=== PATIENT | female | born 1935 | race Caucasian/White ===

== ENCOUNTER 2020-11-05 17:25 | Emergency (ER) | payer MEDICARE, OTHER ==
[2020-11-05] MEDS ORDERED: Aspirin Chewable 81 MG TAB ONE (17:33)
[2020-11-05] MEDS ORDERED: methylPREDNISolone Sod Succ/PF 125 MG/2 ML VIAL ONE (17:52)
[2020-11-05 18:01] LABS: #Basophils 0.1 thou/uL (0.0-0.2); #Monocytes 0.6 thou/uL (0.11-0.59); %Basophils 0.5 % (0.0-1.0); %Lymphocytes 10.2 % (21.0-51.0); %Neutrophils 83.2 % (42.0-75.0); Hemoglobin 13.3 g/dL (12.0-16.0); Mean Corpuscular HGB CONC 32.7 g/dL (32.0-36.0); Mean Corpuscular Hemoglobin 29.7 pg (27.0-31.0); Mean Platelet Volume 7.8 fL (7.4-10.4); Platelet Count 207 thou/uL (130-400); RBC Distribution Width 13.2 % (11.5-14.5); Red Blood Cell (RBC) Count 4.47 mill/uL (4.20-5.40); White Blood Cell (WBC) Count 9.6 thou/uL (4.8-10.8)
[2020-11-05 18:13] LABS: ALT (SGPT) 14 U/L (8-55); AST (SGOT) 14 U/L (5-34); Albumin 4.2 g/dL (3.4-4.8); Alkaline Phosphatase 82 U/L (40-110); Anion Gap 16 mmol/L (10-20); BUN (Urea Nitrogen) 12 mg/dL (9.8-20.1); Bilirubin, Total 0.8 mg/dL (0.2-1.2); Calc. Creatinine Clearance 0 mL/min (70-130); Calcium 9.1 mg/dL (7.8-10.44); Carbon Dioxide 28 mmol/L (23-31); Chloride 100 mmol/L (98-107); Globulin 2.4 g/dL (2.4-3.5); Glucose 117 mg/dL (83-110); Potassium 4.2 mmol/L (3.5-5.1); Protein, Total 6.6 g/dL (5.8-8.1); Sodium 140 mmol/L (136-145)
== END 2020-11-05 18:25 | disposition home or self-care (01) ==
LOC: MADERS 17:25
DX: J44.1 Chronic obstructive pulmonary disease with (acute) exacerbation (principal); I25.10 Atherosclerotic heart disease of native coronary artery without angina pectoris; E11.9 Type 2 diabetes mellitus without complications; I10 Essential (primary) hypertension; Z87.891 Personal history of nicotine dependence
CPT/HCPCS: 71045; 80053; 83880; 84484; 85025; 93005; 96374; J2930; J7620

== ENCOUNTER 2021-08-22 16:58 | Inpatient (IN) | payer MEDICARE, OTHER ==
[2021-08-22 19:04] VITALS: BMI 39.8
[2021-08-22] MEDS ORDERED: FLU VACC QS2021-22(65YR UP)/PF 240 MCG/0.7 ML SYRINGE IM ONE (19:15)
[2021-08-22] MEDS ORDERED: Ibuprofen 200 MG TAB PO PRN (20:02)
[2021-08-22] MEDS ORDERED: HumaLOG 300 UNITS/3 ML VIAL SC PRN (20:09)
[2021-08-22] MEDS ORDERED: Dextrose 50% Abboject 50 ML SYRINGE SLOW IVP PRN (20:09)
[2021-08-22] MEDS ORDERED: Ciprofloxacin 500 MG TAB PO SCH (20:30)
[2021-08-22] MEDS: Gabapentin 100 MG CAP PO SCH (20:47)
[2021-08-22] MEDS: Aspirin 81 mg Enteric Coated Tablet PO SCH (20:48)
[2021-08-23] MEDS: Acetaminophen 500 MG TAB PO SCH ×5 (00:06→23:44)
[2021-08-23] MEDS: traMADol HCl 50 MG TAB PO SCH ×5 (00:07→23:43)
[2021-08-23] MEDS: Levothyroxine Sodium 75 MCG TAB PO SCH (05:42)
[2021-08-23] MEDS: Ciprofloxacin 500 MG TAB PO SCH ×2 (05:47→20:03)
[2021-08-23] MEDS: metFORMIN 500 MG TAB PO SCH (09:03)
[2021-08-23] MEDS: Gabapentin 100 MG CAP PO SCH ×3 (09:03→20:06)
[2021-08-23] MEDS: Aspirin 81 mg Enteric Coated Tablet PO SCH ×2 (09:03→20:02)
[2021-08-23] MEDS: Lisinopril 5 MG TAB PO SCH (09:05)
[2021-08-23] MEDS: Venlafaxine HCl 37.5 MG TAB PO SCH (09:05)
[2021-08-23] MEDS: OLODATEROL HCL INH SCH (11:51)
[2021-08-23] MEDS: TIOTROPIUM BR INH SCH (11:51)
[2021-08-24] MEDS: Levothyroxine Sodium 75 MCG TAB PO SCH (05:36)
[2021-08-24] MEDS: Acetaminophen 500 MG TAB PO SCH ×3 (05:36→17:31)
[2021-08-24] MEDS: traMADol HCl 50 MG TAB PO SCH ×3 (05:37→17:31)
[2021-08-24] MEDS: Ciprofloxacin 500 MG TAB PO SCH ×2 (05:43→20:24)
[2021-08-24] MEDS: Gabapentin 100 MG CAP PO SCH ×3 (09:18→20:23)
[2021-08-24] MEDS: Aspirin 81 mg Enteric Coated Tablet PO SCH ×2 (09:18→20:23)
[2021-08-24] MEDS: metFORMIN 500 MG TAB PO SCH (09:18)
[2021-08-24] MEDS: Venlafaxine HCl 37.5 MG TAB PO SCH (09:19)
[2021-08-24] MEDS: Lisinopril 5 MG TAB PO SCH (09:19)
[2021-08-24] MEDS: OLODATEROL HCL INH SCH (12:05)
[2021-08-24] MEDS: TIOTROPIUM BR INH SCH (12:05)
[2021-08-25] MEDS: Acetaminophen 500 MG TAB PO SCH ×5 (00:07→23:14)
[2021-08-25] MEDS: Betamethasone 0.1% Cream 15 GM TUBE TOP SCH ×3 (00:07→21:19)
[2021-08-25] MEDS: traMADol HCl 50 MG TAB PO SCH ×5 (00:08→23:14)
[2021-08-25] MEDS: Ciprofloxacin 500 MG TAB PO SCH (05:44)
[2021-08-25] MEDS: Levothyroxine Sodium 75 MCG TAB PO SCH (05:44)
[2021-08-25 08:24] LABS: #Lymphocytes 0.8 thou/uL (1.20-3.40); #Monocytes 0.6 thou/uL (0.11-0.59); #Neutrophils 5.3 thou/uL (1.40-6.50); %Basophils 0.6 % (0.0-1.0); %Eosinophils 0.1 % (0.0-10.0); %Lymphocytes 11.7 % (21.0-51.0); %Monocytes 8.4 % (0.0-10.0); %Neutrophils 79.1 % (42.0-75.0); Hemoglobin 11.1 g/dL (12.0-16.0); Mean Corpuscular HGB CONC 31.9 g/dL (32.0-36.0); Mean Corpuscular Hemoglobin 28.9 pg (27.0-31.0); Mean Corpuscular Volume 90.6 fL (78.0-98.0); Platelet Count 235 thou/uL (130-400); RBC Distribution Width 12.9 % (11.5-14.5); Red Blood Cell (RBC) Count 3.83 mill/uL (4.20-5.40); White Blood Cell (WBC) Count 6.7 thou/uL (4.8-10.8)
[2021-08-25 08:40] LABS: Anion Gap 13 mmol/L (10-20); BUN (Urea Nitrogen) 15 mg/dL (9.8-20.1); Calc. Creatinine Clearance 87 mL/min (70-130); Calcium 8.9 mg/dL (7.8-10.44); Carbon Dioxide 28 mmol/L (23-31); Chloride 100 mmol/L (98-107); Glucose 112 mg/dL (83-110); Potassium 4.5 mmol/L (3.5-5.1); Sodium 136 mmol/L (136-145)
[2021-08-25] MEDS: metFORMIN 500 MG TAB PO SCH (08:47)
[2021-08-25] MEDS: Venlafaxine HCl 37.5 MG TAB PO SCH (08:47)
[2021-08-25] MEDS: Lisinopril 5 MG TAB PO SCH (08:47)
[2021-08-25] MEDS: Gabapentin 100 MG CAP PO SCH ×3 (08:48→21:18)
[2021-08-25] MEDS: Aspirin 81 mg Enteric Coated Tablet PO SCH ×2 (08:49→21:19)
[2021-08-25] MEDS: OLODATEROL HCL INH SCH (11:43)
[2021-08-25] MEDS: TIOTROPIUM BR INH SCH (11:43)
[2021-08-25 20:42] LABS: SARS-CoV-2 PCR by NAA Not Detected (NotDetected)
[2021-08-26] MEDS: traMADol HCl 50 MG TAB PO SCH ×3 (06:05→17:45)
[2021-08-26] MEDS: Acetaminophen 500 MG TAB PO SCH ×3 (06:05→17:44)
[2021-08-26] MEDS: Levothyroxine Sodium 75 MCG TAB PO SCH (06:05)
[2021-08-26] MEDS: Ferrous Gluconate 324 MG TAB PO SCH (08:22)
[2021-08-26] MEDS: Lisinopril 5 MG TAB PO SCH (08:22)
[2021-08-26] MEDS: Gabapentin 100 MG CAP PO SCH ×3 (08:23→20:44)
[2021-08-26] MEDS: Venlafaxine HCl 37.5 MG TAB PO SCH (08:23)
[2021-08-26] MEDS: Aspirin 81 mg Enteric Coated Tablet PO SCH ×2 (08:23→20:44)
[2021-08-26] MEDS: Betamethasone 0.1% Cream 15 GM TUBE TOP SCH ×2 (08:24→20:45)
[2021-08-26] MEDS: metFORMIN 500 MG TAB PO SCH (08:24)
[2021-08-26] MEDS: OLODATEROL HCL INH SCH (11:26)
[2021-08-26] MEDS: TIOTROPIUM BR INH SCH (11:26)
[2021-08-27] MEDS: traMADol HCl 50 MG TAB PO SCH ×5 (07:14→23:50)
[2021-08-27] MEDS: Acetaminophen 500 MG TAB PO SCH ×5 (07:14→23:50)
[2021-08-27] MEDS: Levothyroxine Sodium 75 MCG TAB PO SCH (07:17)
[2021-08-27] MEDS: Gabapentin 100 MG CAP PO SCH ×3 (08:12→20:56)
[2021-08-27] MEDS: Aspirin 81 mg Enteric Coated Tablet PO SCH ×2 (08:12→20:56)
[2021-08-27] MEDS: Ferrous Gluconate 324 MG TAB PO SCH (08:12)
[2021-08-27] MEDS: metFORMIN 500 MG TAB PO SCH (08:13)
[2021-08-27] MEDS: Lisinopril 5 MG TAB PO SCH (08:13)
[2021-08-27] MEDS: Betamethasone 0.1% Cream 15 GM TUBE TOP SCH ×2 (08:16→20:57)
[2021-08-27] MEDS: Venlafaxine HCl 37.5 MG TAB PO SCH (08:17)
[2021-08-27] MEDS: TIOTROPIUM BR INH SCH (12:05)
[2021-08-27] MEDS: OLODATEROL HCL INH SCH (12:05)
[2021-08-28] MEDS: Levothyroxine Sodium 75 MCG TAB PO SCH (05:39)
[2021-08-28] MEDS: Acetaminophen 500 MG TAB PO SCH ×4 (05:39→23:54)
[2021-08-28] MEDS: traMADol HCl 50 MG TAB PO SCH ×4 (05:39→23:53)
[2021-08-28] MEDS: Gabapentin 100 MG CAP PO SCH ×3 (08:38→20:44)
[2021-08-28] MEDS: Lisinopril 5 MG TAB PO SCH (08:39)
[2021-08-28] MEDS: Venlafaxine HCl 37.5 MG TAB PO SCH (08:39)
[2021-08-28] MEDS: metFORMIN 500 MG TAB PO SCH (08:39)
[2021-08-28] MEDS: Aspirin 81 mg Enteric Coated Tablet PO SCH ×2 (08:39→20:46)
[2021-08-28] MEDS: Ferrous Gluconate 324 MG TAB PO SCH (08:39)
[2021-08-28] MEDS: Betamethasone 0.1% Cream 15 GM TUBE TOP SCH ×2 (08:39→20:46)
[2021-08-28] MEDS: TIOTROPIUM BR INH SCH (11:49)
[2021-08-28] MEDS: OLODATEROL HCL INH SCH (11:49)
[2021-08-29] MEDS: Acetaminophen 500 MG TAB PO SCH ×3 (05:17→17:45)
[2021-08-29] MEDS: Levothyroxine Sodium 75 MCG TAB PO SCH (05:18)
[2021-08-29] MEDS: traMADol HCl 50 MG TAB PO SCH ×3 (05:18→17:44)
[2021-08-29] MEDS: Gabapentin 100 MG CAP PO SCH ×3 (09:35→21:22)
[2021-08-29] MEDS: metFORMIN 500 MG TAB PO SCH (09:37)
[2021-08-29] MEDS: Venlafaxine HCl 37.5 MG TAB PO SCH (09:37)
[2021-08-29] MEDS: Lisinopril 5 MG TAB PO SCH (09:37)
[2021-08-29] MEDS: Ferrous Gluconate 324 MG TAB PO SCH (09:37)
[2021-08-29] MEDS: Aspirin 81 mg Enteric Coated Tablet PO SCH ×2 (09:38→21:22)
[2021-08-29] MEDS: Betamethasone 0.1% Cream 15 GM TUBE TOP SCH ×2 (09:39→21:22)
[2021-08-29] MEDS: TIOTROPIUM BR INH SCH (11:55)
[2021-08-29] MEDS: OLODATEROL HCL INH SCH (11:55)
[2021-08-30] MEDS: traMADol HCl 50 MG TAB PO SCH ×4 (00:38→17:58)
[2021-08-30] MEDS: Acetaminophen 500 MG TAB PO SCH ×4 (00:38→17:57)
[2021-08-30] MEDS: Levothyroxine Sodium 75 MCG TAB PO SCH (05:16)
[2021-08-30] MEDS: Ferrous Gluconate 324 MG TAB PO SCH (08:12)
[2021-08-30] MEDS: metFORMIN 500 MG TAB PO SCH (08:12)
[2021-08-30] MEDS: Lisinopril 5 MG TAB PO SCH (08:12)
[2021-08-30] MEDS: Gabapentin 100 MG CAP PO SCH ×3 (08:13→22:05)
[2021-08-30] MEDS: Venlafaxine HCl 37.5 MG TAB PO SCH (08:13)
[2021-08-30] MEDS: Betamethasone 0.1% Cream 15 GM TUBE TOP SCH ×2 (08:14→22:05)
[2021-08-30] MEDS: Aspirin 81 mg Enteric Coated Tablet PO SCH ×2 (08:14→22:07)
[2021-08-30] MEDS: TIOTROPIUM BR INH SCH (11:30)
[2021-08-30] MEDS: OLODATEROL HCL INH SCH (11:30)
[2021-08-31] MEDS: traMADol HCl 50 MG TAB PO SCH ×5 (01:12→23:15)
[2021-08-31] MEDS: Acetaminophen 500 MG TAB PO SCH ×5 (01:12→23:14)
[2021-08-31] MEDS: Levothyroxine Sodium 75 MCG TAB PO SCH (05:26)
[2021-08-31] MEDS: Aspirin 81 mg Enteric Coated Tablet PO SCH ×2 (08:42→20:10)
[2021-08-31] MEDS: Ferrous Gluconate 324 MG TAB PO SCH (08:42)
[2021-08-31] MEDS: Venlafaxine HCl 37.5 MG TAB PO SCH (08:42)
[2021-08-31] MEDS: Betamethasone 0.1% Cream 15 GM TUBE TOP SCH ×2 (08:43→20:11)
[2021-08-31] MEDS: Lisinopril 5 MG TAB PO SCH (08:43)
[2021-08-31] MEDS: metFORMIN 500 MG TAB PO SCH (08:43)
[2021-08-31] MEDS: Gabapentin 100 MG CAP PO SCH ×3 (08:43→20:10)
[2021-08-31] MEDS: OLODATEROL HCL INH SCH (11:30)
[2021-08-31] MEDS: TIOTROPIUM BR INH SCH (11:30)
[2021-09-01] MEDS: traMADol HCl 50 MG TAB PO SCH ×3 (05:10→17:35)
[2021-09-01] MEDS: Levothyroxine Sodium 75 MCG TAB PO SCH (05:10)
[2021-09-01] MEDS: Acetaminophen 500 MG TAB PO SCH ×3 (05:11→17:36)
[2021-09-01] MEDS: Ferrous Gluconate 324 MG TAB PO SCH (08:20)
[2021-09-01] MEDS: Aspirin 81 mg Enteric Coated Tablet PO SCH ×2 (08:20→20:53)
[2021-09-01] MEDS: metFORMIN 500 MG TAB PO SCH (08:20)
[2021-09-01] MEDS: Venlafaxine HCl 37.5 MG TAB PO SCH (08:21)
[2021-09-01] MEDS: Gabapentin 100 MG CAP PO SCH ×3 (08:21→20:53)
[2021-09-01] MEDS: Betamethasone 0.1% Cream 15 GM TUBE TOP SCH ×2 (08:21→20:53)
[2021-09-01] MEDS: Lisinopril 5 MG TAB PO SCH (08:22)
[2021-09-01] MEDS: OLODATEROL HCL INH SCH (11:55)
[2021-09-01] MEDS: TIOTROPIUM BR INH SCH (11:55)
[2021-09-01 17:30] LABS: SARS-CoV-2 PCR by NAA Not Detected (NotDetected)
[2021-09-02] MEDS: Acetaminophen 500 MG TAB PO SCH ×4 (02:14→20:17)
[2021-09-02] MEDS: traMADol HCl 50 MG TAB PO SCH ×4 (02:14→20:17)
[2021-09-02] MEDS: Levothyroxine Sodium 75 MCG TAB PO SCH (05:36)
[2021-09-02] MEDS: Ferrous Gluconate 324 MG TAB PO SCH (08:21)
[2021-09-02] MEDS: Venlafaxine XR 37.5 MG CAP PO SCH (08:22)
[2021-09-02] MEDS: metFORMIN 500 MG TAB PO SCH (08:22)
[2021-09-02] MEDS: Gabapentin 100 MG CAP PO SCH ×3 (08:22→21:20)
[2021-09-02] MEDS: Aspirin 81 mg Enteric Coated Tablet PO SCH ×2 (08:22→21:22)
[2021-09-02] MEDS: Lisinopril 5 MG TAB PO SCH (08:23)
[2021-09-02] MEDS: Betamethasone 0.1% Cream 15 GM TUBE TOP SCH ×2 (08:33→21:23)
[2021-09-02] MEDS: OLODATEROL HCL INH SCH (13:05)
[2021-09-02] MEDS: TIOTROPIUM BR INH SCH (13:05)
[2021-09-03] MEDS: traMADol HCl 50 MG TAB PO SCH ×4 (01:24→17:25)
[2021-09-03] MEDS: Acetaminophen 500 MG TAB PO SCH ×4 (01:24→17:26)
[2021-09-03] MEDS: Levothyroxine Sodium 75 MCG TAB PO SCH (05:18)
[2021-09-03] MEDS: Ferrous Gluconate 324 MG TAB PO SCH (08:14)
[2021-09-03] MEDS: Gabapentin 100 MG CAP PO SCH ×3 (08:15→21:11)
[2021-09-03] MEDS: Aspirin 81 mg Enteric Coated Tablet PO SCH ×2 (08:15→21:11)
[2021-09-03] MEDS: metFORMIN 500 MG TAB PO SCH (08:15)
[2021-09-03] MEDS: Betamethasone 0.1% Cream 15 GM TUBE TOP SCH ×2 (08:15→21:14)
[2021-09-03] MEDS: Lisinopril 5 MG TAB PO SCH (08:17)
[2021-09-03] MEDS: Venlafaxine XR 37.5 MG CAP PO SCH (08:17)
[2021-09-03] MEDS: TIOTROPIUM BR INH SCH (10:34)
[2021-09-03] MEDS: OLODATEROL HCL INH SCH (10:34)
[2021-09-04] MEDS: traMADol HCl 50 MG TAB PO SCH ×4 (00:45→17:41)
[2021-09-04] MEDS: Acetaminophen 500 MG TAB PO SCH ×4 (00:45→17:40)
[2021-09-04] MEDS: Levothyroxine Sodium 75 MCG TAB PO SCH (05:35)
[2021-09-04] MEDS: Aspirin 81 mg Enteric Coated Tablet PO SCH ×2 (08:32→21:00)
[2021-09-04] MEDS: Lisinopril 5 MG TAB PO SCH (08:32)
[2021-09-04] MEDS: Venlafaxine XR 37.5 MG CAP PO SCH (08:32)
[2021-09-04] MEDS: metFORMIN 500 MG TAB PO SCH (08:33)
[2021-09-04] MEDS: Betamethasone 0.1% Cream 15 GM TUBE TOP SCH ×2 (08:33→21:00)
[2021-09-04] MEDS: Ferrous Gluconate 324 MG TAB PO SCH (08:33)
[2021-09-04] MEDS: Gabapentin 100 MG CAP PO SCH ×3 (08:34→21:02)
[2021-09-04] MEDS: TIOTROPIUM BR INH SCH (12:05)
[2021-09-04] MEDS: OLODATEROL HCL INH SCH (12:05)
[2021-09-04] MEDS: Cyclobenzaprine 10 MG TAB PO PRN ×2 (14:52→21:01)
[2021-09-05] MEDS: traMADol HCl 50 MG TAB PO SCH ×4 (00:59→17:28)
[2021-09-05] MEDS: Acetaminophen 500 MG TAB PO SCH ×4 (00:59→17:28)
[2021-09-05] MEDS: Levothyroxine Sodium 75 MCG TAB PO SCH (06:14)
[2021-09-05] MEDS: Aspirin 81 mg Enteric Coated Tablet PO SCH ×2 (08:38→20:18)
[2021-09-05] MEDS: metFORMIN 500 MG TAB PO SCH (08:38)
[2021-09-05] MEDS: Venlafaxine XR 37.5 MG CAP PO SCH (08:38)
[2021-09-05] MEDS: Ferrous Gluconate 324 MG TAB PO SCH (08:38)
[2021-09-05] MEDS: Lisinopril 5 MG TAB PO SCH (08:38)
[2021-09-05] MEDS: Gabapentin 100 MG CAP PO SCH ×3 (08:39→20:18)
[2021-09-05] MEDS: Betamethasone 0.1% Cream 15 GM TUBE TOP SCH ×2 (08:40→20:19)
[2021-09-05] MEDS: OLODATEROL HCL INH SCH (11:30)
[2021-09-05] MEDS: TIOTROPIUM BR INH SCH (11:30)
[2021-09-05] MEDS: Cyclobenzaprine 10 MG TAB PO PRN (17:28)
[2021-09-06] MEDS: Acetaminophen 500 MG TAB PO SCH ×2 (00:44→05:26)
[2021-09-06] MEDS: traMADol HCl 50 MG TAB PO SCH ×2 (00:44→05:27)
[2021-09-06] MEDS: Levothyroxine Sodium 75 MCG TAB PO SCH (05:26)
[2021-09-06 08:06] VITALS: TEMP 97.9
[2021-09-06] MEDS: metFORMIN 500 MG TAB PO SCH (08:51)
[2021-09-06] MEDS: Aspirin 81 mg Enteric Coated Tablet PO SCH (08:51)
[2021-09-06] MEDS: Lisinopril 5 MG TAB PO SCH (08:51)
[2021-09-06] MEDS: Venlafaxine XR 37.5 MG CAP PO SCH (08:51)
[2021-09-06] MEDS: Gabapentin 100 MG CAP PO SCH (08:53)
[2021-09-06] MEDS: Ferrous Gluconate 324 MG TAB PO SCH (08:53)
[2021-09-06] MEDS: Betamethasone 0.1% Cream 15 GM TUBE TOP SCH (08:54)
[2021-09-06 10:53] VITALS: BP 150/84
== END 2021-09-06 10:45 | disposition home or self-care (01) | DRG 560 ==
LOC: MADMS 16:58
PROVIDERS: ADMIT Family Medicine; ATTEND Family Medicine
DX: S82.892D Other fracture of left lower leg, subsequent encounter for closed fracture with routine healing (principal); N39.0 Urinary tract infection, site not specified; E11.9 Type 2 diabetes mellitus without complications; I10 Essential (primary) hypertension; Z20.822 Contact with and (suspected) exposure to COVID-19; J44.9 Chronic obstructive pulmonary disease, unspecified; I25.10 Atherosclerotic heart disease of native coronary artery without angina pectoris; W01.0XXD Fall on same level from slipping, tripping and stumbling without subsequent striking against object, subsequent encounter; K59.00 Constipation, unspecified; Z66 Do not resuscitate; D64.9 Anemia, unspecified; B95.2 Enterococcus as the cause of diseases classified elsewhere; E66.9 Obesity, unspecified; Z68.38 Body mass index [BMI] 38.0-38.9, adult; Z79.890 Hormone replacement therapy; Z79.899 Other long term (current) drug therapy; Z79.891 Long term (current) use of opiate analgesic; Z79.82 Long term (current) use of aspirin; Z79.84 Long term (current) use of oral hypoglycemic drugs; Z90.49 Acquired absence of other specified parts of digestive tract; Z90.710 Acquired absence of both cervix and uterus; Z95.2 Presence of prosthetic heart valve
CPT/HCPCS: 36415; 36416; 80048; 85025; U0003; U0005

== ENCOUNTER 2023-06-24 14:23 | Outpatient (CLI) | payer MEDICARE, OTHER ==
[2023-06-24 14:58] LABS: ALT (SGPT) 23 U/L (8-55); AST (SGOT) 21 U/L (5-34); Albumin 4.5 g/dL (3.4-4.8); Alkaline Phosphatase 87 U/L (40-110); Anion Gap 14 mmol/L (10-20); BUN (Urea Nitrogen) 20 mg/dL (9.8-20.1); Bilirubin, Total 0.5 mg/dL (0.2-1.2); Calc. Creatinine Clearance 0 mL/min (70-130); Calcium 9.5 mg/dL (7.8-10.44); Carbon Dioxide 28 mmol/L (23-31); Cardiac Risk 2.9 (Less than 4.5); Chloride 106 mmol/L (98-107); Cholesterol 152 mg/dl (< 200 Desired); Estimated GFR 68; Globulin 2.4 g/dL (2.4-3.5); Glucose 130 mg/dL (83-110); HDL Cholesterol 53 mg/dL (>60 Neg Risk); LDL Cholesterol, Calculated 73 mg/dL; Potassium 5.1 mmol/L (3.5-5.1); Protein, Total 6.9 g/dL (5.8-8.1); Sodium 143 mmol/L (136-145); Triglycerides 128 mg/dL (Less than 150)
[2023-06-24 22:11] LABS: Hemoglobin A1c 6.3 % (4.0-6.0)
== END 2023-06-24 14:24 | disposition home or self-care (01) ==
LOC: MADLABBHPM 14:23
PROVIDERS: ATTEND Family Medicine
DX: E11.9 Type 2 diabetes mellitus without complications (principal); I10 Essential (primary) hypertension; E03.9 Hypothyroidism, unspecified; E78.2 Mixed hyperlipidemia
CPT/HCPCS: 80053; 80061; 83036; 84443